=== PATIENT | male | born 1980 | race Two or more races ===

== ENCOUNTER 2016-10-11 08:57 | Emergency (ER) | payer MEDICAID, OTHER ==
[2016-10-11] MEDS ORDERED: SODIUM CHLORIDE 0.9% 1,000 ML IVB ONE (09:25)
[2016-10-11] MEDS ORDERED: KETOROLAC TROMETH 30 MG/ML 1ML VIAL IV ONE (09:30)
[2016-10-11 09:47] LABS: Albumin 4.3 g/dL (3.4-5.0); BUN/Creatinine Ratio 17.4; Potassium 3.9 mmol/L (3.5-5.1)
[2016-10-11 09:55] LABS: Bilirubin, Total 0.4 mg/dL (0.2-1.0); Total Protein 8.3 g/dL (6.4-8.2)
[2016-10-11 11:10] LABS: Urine RBC None Seen /hpf (0 - 3)
[2016-10-11 11:18] VITALS: BP 122/80
[2016-10-11 11:45] LABS: Basophils # (auto) 0 uL; Basophils % (auto) 0.3 % (0.0-2.0); Eosinophils # (auto) 0.2 uL; Eosinophils % (auto) 3.7 % (0.0-7.0); Hemoglobin 11.9 g/dL (13.5-17.5); Lymphocytes # (auto) 1.8 uL; Lymphocytes % (auto) 35.8 % (10.0-50.0); Mean Corpuscular Hgb Conc. 33.2 g/dL (32.0-36.0); Mean Corpuscular Volume 90.4 fL (80.0-100.0); Mean Platelet Volume 8.3 fL (7.4-10.4); Monocytes # (auto) 0.4 uL; Monocytes % (auto) 7.3 % (0.0-12.0); Neutrophils # (auto) 2.7 uL; Neutrophils % (auto) 52.9 % (37.0-80.0); Platelet Count (auto) 207 10^3/uL (140-450); White Blood Cell 5.2 10^3/uL (4.4-10.8)
[2016-10-11 12:08] LABS: Urine Bilirubin Negative (Negative); Urine Blood Negative /uL (Negative); Urine Color Yellow (Yellow); Urine Glucose Normal (Normal); Urine Ketone Negative (Negative); Urine Nitrite Negative (Negative); Urine Urobilinogen Normal (Negative); Urine pH 5.5 (5.0-8.0)
== END 2016-10-11 12:43 | disposition home or self-care (01) ==
LOC: ER 08:57
DX: N20.9 Urinary calculus, unspecified (principal); Z87.442 Personal history of urinary calculi
CPT/HCPCS: 36415; 74176; 80053; 81001; 85025; 94761; 96361; 96374; 99285; J1885; J7030

== ENCOUNTER 2016-11-13 16:18 | Emergency (ER) | payer MEDICAID ==
[~2016-11-13] VITALS: Ht 170.2 cm; Wt 72.6 kg
[2016-11-13 16:26] VITALS: BP 129/72
== END 2016-11-13 17:10 | disposition home or self-care (01) ==
LOC: ER 16:25
DX: S01.402D Unspecified open wound of left cheek and temporomandibular area, subsequent encounter (principal); B99.9 Unspecified infectious disease; Z48.01 Encounter for change or removal of surgical wound dressing

== ENCOUNTER 2017-03-15 11:25 | Emergency (ER) | payer MEDICAID ==
[~2017-03-15] VITALS: Ht 170.2 cm; Wt 70.3 kg
[2017-03-15 11:51] VITALS: BP 145/74
[2017-03-15] MEDS ORDERED: KETOROLAC TROMETH 60MG/2ML VIAL IM ONE (12:30)
== END 2017-03-15 12:44 | disposition home or self-care (01) ==
LOC: ER 11:25
DX: S83.8X1A Sprain of other specified parts of right knee, initial encounter (principal); Z87.442 Personal history of urinary calculi; X58.XXXA Exposure to other specified factors, initial encounter; Y93.01 Activity, walking, marching and hiking; Y92.89 Other specified places as the place of occurrence of the external cause; Y99.8 Other external cause status
CPT/HCPCS: 73562; 99284; J1885

== ENCOUNTER 2017-08-02 12:24 | Emergency (ER) | payer MEDICAID ==
[2017-08-02 14:48] VITALS: BP 128/72
== END 2017-08-02 16:04 | disposition home or self-care (01) ==
LOC: ER 12:24
DX: S89.91XA Unspecified injury of right lower leg, initial encounter (principal); X58.XXXA Exposure to other specified factors, initial encounter; Y93.89 Activity, other specified; Y92.89 Other specified places as the place of occurrence of the external cause; Y99.8 Other external cause status

== ENCOUNTER 2017-11-29 12:19 | Emergency (ER) | payer MEDICAID ==
[2017-11-29 13:03] VITALS: BP 136/78
[2017-11-29] MEDS ORDERED: INDOMETHACIN 25 MG CAP PO ONE (13:45)
== END 2017-11-29 14:12 | disposition home or self-care (01) ==
LOC: ER 12:24
DX: M25.571 Pain in right ankle and joints of right foot (principal); Z87.442 Personal history of urinary calculi
CPT/HCPCS: 36415; 73630; 84550